=== PATIENT | male | born 2000 | race Hispanic/Latino ===

== ENCOUNTER 2024-02-11 23:45 | Emergency (ER) | payer MEDICAID, SELFPAY ==
[2024-02-12] MEDS ORDERED: hydrOXYzine 25 MG TAB ONE (00:10)
== END 2024-02-12 00:13 | disposition home or self-care (01) ==
LOC: CSHERS 23:45
DX: R09.A2 Foreign body sensation, throat (principal); F41.9 Anxiety disorder, unspecified
CPT/HCPCS: 99283